=== PATIENT | male | born 1985 | race Hispanic/Latino ===

== ENCOUNTER → 2022-08-19 | Outpatient (CLI) | payer OTHER, MEDICARE ==
[~2022-08-19] MED LIST: LEVE750T10 PO; LEVO75TA10 PO; PRAV10TA39 PO; TEST100V IM
[2022-08-19 16:37] LABS: ALBUMIN 3.5 g/dL (3.5-5.0); CREATININE 2.6 mg/dL (0.5-1.5); POTASSIUM 3.7 mmol/L (3.5-5.1); TOTAL PROTEIN, SERUM 7.8 g/dL (6.0-8.3)
== END | disposition home or self-care (01) ==
LOC: LAB 13:25
PROVIDERS: ATTEND Student in an Organized Health Care Education/Training Program
DX: R06.02 Shortness of breath (principal)
CPT/HCPCS: 36415; 80053

== ENCOUNTER 2022-08-28 10:24 | Emergency (ER) | payer OTHER, MEDICARE ==
[~2022-08-28] VITALS: Ht 162.6 cm; Wt 61.2 kg
[~2022-08-28 10:24] MED LIST changes: -IOHEXOL 350 MG/ML 100ML INFUS..BTL IV ONE; -METOPROLOL TARTRATE 1 MG/ML 5ML VIAL IV ONE
[2022-08-28 10:59] LABS: BASOPHILS % (AUTO) 0.4 % (0.0-5.0); EOSINOPHILS % (AUTO) 2.9 % (0.0-8.0); HEMATOCRIT 29.7 % (42-54); LYMPHOCYTES % (AUTO) 22.3 % (21.0-51.0); MEAN CORPUSCULAR HEMOGLOBIN 34.6 pg (27.0-33.0); MEAN CORPUSCULAR VOLUME 104.9 fL (79-99); PLATELET COUNT (AUTO) 147 K/uL (130-400); RED BLOOD CELL COUNT(AUTO) 2.83 MIL/uL (4.50-6.20); RED CELL DISTRIBUTION WIDTH 12.5 % (11.0-15.5); WHITE BLOOD COUNT (AUTO) 7.3 K/uL (4.8-10.8)
[2022-08-28 11:13] LABS: INR 1.03 (0.85-1.15); PROTHROMBIN TIME 11.2 SEC (9.6-11.6)
[2022-08-28] MEDS ORDERED: LEVETIRACETAM 500 MG/5 ML SD VIAL IV ONE (11:26)
[2022-08-28] MEDS ORDERED: LEVETIRACETAM 500 MG in 0.9%NACL 100ML 100 ML IV ONE (11:30)
[2022-08-28 11:35] LABS: CREATININE 2.4 mg/dL (0.5-1.5); POTASSIUM 4.2 mmol/L (3.5-5.1)
[2022-08-28 11:42] LABS: TOTAL PROTEIN, SERUM 6.8 g/dL (6.0-8.3)
[2022-08-28] MEDS ORDERED: LIDOCAINE HCL 1% 20 ML VIAL ONE (11:59)
[2022-08-28] MEDS ORDERED: 0.9%NACL 1000ML 1,000 ML IV ONE (12:30)
[2022-08-28] MEDS ORDERED: OCTYL 2-CYANOACRYLATE 1 EACH TP SCH (13:00)
[2022-08-28 16:31] VITALS: BP 113/69
== END 2022-08-28 16:35 | disposition home or self-care (01) ==
LOC: EDH 10:24
DX: S01.81XA Laceration without foreign body of other part of head, initial encounter (principal); G40.909 Epilepsy, unspecified, not intractable, without status epilepticus; E78.00 Pure hypercholesterolemia, unspecified; N28.9 Disorder of kidney and ureter, unspecified; Z79.899 Other long term (current) drug therapy; Z98.890 Other specified postprocedural states; Z88.8 Allergy status to other drugs, medicaments and biological substances; W18.39XA Other fall on same level, initial encounter; Y93.89 Activity, other specified; Y92.89 Other specified places as the place of occurrence of the external cause; Y99.8 Other external cause status
CPT/HCPCS: 99285; 70450; 96365; 96366; 84484; 80053; 85025; 85610; 85730; 36415; 72125; 12011; 80177; 93005; J1953 ×2; J7030 ×2

== ENCOUNTER → 2022-08-28 | Outpatient (CLI) | payer OTHER, MEDICARE ==
[~2022-08-28] MED LIST changes: +IOHEXOL 350 MG/ML 100ML INFUS..BTL IV ONE; +METOPROLOL TARTRATE 1 MG/ML 5ML VIAL IV ONE
== END | disposition home or self-care (01) ==
LOC: RAH 10:00
PROVIDERS: ATTEND Student in an Organized Health Care Education/Training Program
DX: R06.02 Shortness of breath (principal)
CPT/HCPCS: 75574; J3490 ×2; Q9967

== ENCOUNTER → 2022-10-21 | Outpatient (CLI) | payer OTHER, MEDICARE | END | disposition home or self-care (01) | LOC: SHCH 11:05 | PROVIDERS: ATTEND Student in an Organized Health Care Education/Training Program | DX: I08.3 Combined rheumatic disorders of mitral, aortic and tricuspid valves (principal); R06.02 Shortness of breath; R94.31 Abnormal electrocardiogram [ECG] [EKG] | CPT/HCPCS: 93306 ==

== ENCOUNTER → 2022-11-20 | Outpatient (CLI) | payer OTHER, MEDICARE ==
[2022-11-20 10:06] LABS: INR 1.05 (0.85-1.15); PROTHROMBIN TIME 11.4 SEC (9.6-11.6)
[2022-11-20 10:08] LABS: PARTIAL THROMBOPLASTIN TIME 29.8 SEC (26.3-35.5)
== END | disposition home or self-care (01) ==
LOC: RAH 09:08
PROVIDERS: ATTEND Internal Medicine
DX: E04.1 Nontoxic single thyroid nodule (principal); Z79.01 Long term (current) use of anticoagulants
CPT/HCPCS: 10005; 36415; 76942; 85610; 85730